=== PATIENT | male | born 1955 | race Caucasian/White ===

== ENCOUNTER 2019-05-30 08:54 | Outpatient (CLI) | payer MEDICARE, OTHER ==
[2019-05-30 09:42] LABS: #Eosinphils 0.2 thou/uL (0.0-0.7); #Lymphocytes 1.1 thou/uL (1.20-3.40); #Monocytes 0.6 thou/uL (0.11-0.59); #Neutrophils 3.9 thou/uL (1.40-6.50); %Basophils 0.2 % (0.0-1.0); %Monocytes 9.8 % (0.0-10.0); %Neutrophils 66.9 % (42.0-75.0); Hemoglobin 13.7 g/dL (14.0-18.0); Mean Corpuscular Hemoglobin 28.2 pg (27.0-31.0); Mean Corpuscular Volume 85.5 fL (78.0-98.0); Mean Platelet Volume 8.2 fL (7.4-10.4); Platelet Count 204 thou/uL (130-400); Red Blood Cell (RBC) Count 4.85 mill/uL (4.70-6.10); White Blood Cell (WBC) Count 5.8 thou/uL (4.8-10.8)
[2019-05-30 09:53] LABS: PTT 26.3 SEC (22.9-36.1); Prothrombin Time 13.5 SEC (12.0-14.7)
[2019-05-30 10:12] LABS: ALT (SGPT) 25 U/L (8-55); AST (SGOT) 26 U/L (5-34); Albumin 4.7 g/dL (3.4-4.8); Alkaline Phosphatase 64 U/L (40-110); Anion Gap 14 mmol/L (10-20); BUN (Urea Nitrogen) 12 mg/dL (8.4-25.7); Bilirubin, Total 1.1 mg/dL (0.2-1.2); Calc. Creatinine Clearance 0 mL/min (70-130); Calcium 9.4 mg/dL (7.8-10.44); Carbon Dioxide 24 mmol/L (23-31); Chloride 104 mmol/L (98-107); Estimated GFR-MDRD 88; Globulin 2.6 g/dL (2.4-3.5); Glucose 117 mg/dL (80-115); Potassium 4.5 mmol/L (3.5-5.1); Protein, Total 7.3 g/dL (5.8-8.1); Sodium 137 mmol/L (136-145)
== END 2019-05-30 08:55 | disposition home or self-care (01) ==
LOC: LABBT 08:54
PROVIDERS: ATTEND Internal Medicine Cardiovascular Disease
DX: Z01.812 Encounter for preprocedural laboratory examination (principal); R94.39 Abnormal result of other cardiovascular function study
CPT/HCPCS: 80053; 85025; 85610; 85730

== ENCOUNTER 2019-06-03 05:48 | Observation (INO) | payer MEDICARE, OTHER ==
[2019-05-30 09:24] VITALS: BMI 31.1
[2019-06-03] MEDS ORDERED: Diazepam 5 MG TAB ONE (06:37)
[2019-06-03] MEDS ORDERED: Heparin (Artline) 1,000 ML ONE (08:36)
[2019-06-03] MEDS ORDERED: Fentanyl 100 MCG/2 ML VIAL ONE ×2 (09:03→10:15)
[2019-06-03] MEDS ORDERED: Midazolam HCl 2 mg/2 ml Vial ONE (09:03)
[2019-06-03] MEDS ORDERED: Heparin 10,000 UNITS/1 ML VIAL ONE ×2 (09:41→09:53)
[2019-06-03] MEDS ORDERED: Nitroglycerin 100MG/250ML BOT 250 ML ONE (09:48)
[2019-06-03] MEDS ORDERED: Iopamidol 370 76% 100 ML VIAL ONE (09:48)
[2019-06-03] MEDS ORDERED: Iopamidol 370 76% 50 ML VIAL FS ONE (09:48)
[2019-06-03] MEDS ORDERED: Heparin (Artline) 500 ML ONE (10:48)
[2019-06-03] MEDS ORDERED: Sodium Chloride 0.9% 1,000 ML IV SCH (12:01)
[2019-06-03] MEDS ORDERED: Acetaminophen/Codeine 30-300mg Tablet PO PRN ×2 (12:01)
[2019-06-03] MEDS ORDERED: Nitroglycerin 0.4 MG TAB (25 Tab Bottle) SL PRN (12:01)
[2019-06-03] MEDS ORDERED: Fentanyl 100 MCG/2 ML VIAL SLOW IVP PRN (12:03)
[2019-06-03 14:10] LABS: Troponin I Less than 0.010 ng/mL (< 0.028)
--- NOTE | 2019-06-03 17:01 | CON ---
DATE OF CONSULTATION: HISTORY OF PRESENT ILLNESS: This is a pleasant 63-year-old gentleman with a history of a cardiac murmur for about 6 years. In 2012, he presented with an acute inferior [place] and underwent stenting of his distal right coronary artery by Dr. Levine. Within the year, he re-presented with an upper GI bleed and was found to have a marginal ulcer related to a previous gastric bypass with a Lilibeth-en-Y limb. Subsequently, he has had a followup endoscopy with healing of this lesion. Due to increasing dyspnea with exertion without chest pain, the patient underwent a cardiac cath today, showing subtotal occlusion prior to the stent with a small distal vessels. Attempts to pass a balloon through the stenosis were not successful. A cardiac echo done in Dr. Levine's office a few weeks ago showed a peak velocity of 3.5 m/sec with a peak gradient of 49 and a mean gradient of 33. Valve area appeared to be about 1.1 to 1.2 and the anulus diameter appeared to be about 2.3 cm. He is now being referred for aortic valve replacement, possibly coronary artery bypass grafting, although the right coronary artery made this probably too small to bypass and its branch vessels. PAST MEDICAL HISTORY: Includes: 1. Hypertension. 2. Dyslipidemia. 3. History of bladder cancer. 4. Chronic anemia, which may be related to his previous gastric bypass, which was done in [place] many years ago. PAST SURGICAL HISTORY: Includes: 1. Gastric bypass. 2. Bladder cystoscopy by Dr. Jasmine, with most recent one being negative. 3. He has had a previous coronary stent. SOCIAL HISTORY: The patient is a former smoker. 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 He drinks about a 6-pack a day and drinks a little wine every evening. ALLERGIES: HE REPORTS ALLERGIES TO ERYTHROMYCIN. REVIEW OF SYSTEMS: He has nocturia x2 and does admit to history of prostatic hypertrophy, but was told nothing needed to be done at this time. The patient denies any claudication. PHYSICAL EXAMINATION: GENERAL: On examination, he is an alert and cooperative gentleman at about 215 to 220 pounds, recorded height of 5 feet 8 inches. NECK: No carotid bruits. LUNGS: Clear to auscultation. CARDIAC: High-pitched systolic murmur across the precordium, lattice to the right upper sternal border. ABDOMEN: Obese and nontender. EXTREMITIES: He has no peripheral edema and he has easily palpable pedal pulses in both feet. ASSESSMENT AND PLAN: I believe that the right coronary system may be too small to graft, but this can be assessed at surgery. The patient has increasing dyspnea recently, which is felt to be related to his aortic valve stenosis and I have gone over aortic valve replacement with a bioprosthetic valve, possible coronary artery bypass grafting. He understands and wishes to proceed, although would prefer to wait until after the holidays, at which time he will contact the office. Job ID: [id number]
[2019-06-03 20:40] LABS: Troponin I 0.097 ng/mL (< 0.028)
[2019-06-03] MEDS ORDERED: Acetaminophen 500 MG TAB PO PRN (22:52)
[2019-06-03] MEDS ORDERED: predniSONE 20 MG TAB PO SCH (23:00)
[2019-06-03] MEDS ORDERED: diphenhydrAMINE 50 MG/ML VIAL IVP SCH (23:00)
[2019-06-04] MEDS ORDERED: Iron, Sodium Ferric Gluconate 250 MG in Sodium Chloride 0.9% 100 ML IVPB SCH (07:45)
[2019-06-04] MEDS: Isosorbide Mononitrate (ER) 30 MG TAB PO SCH ×2 (08:43→08:52)
[2019-06-04] MEDS ORDERED: COENZYME Q10 10 MG PO SCH (09:00)
[2019-06-04] MEDS ORDERED: Lisinopril 20 MG TAB PO SCH (09:00)
[2019-06-04] MEDS ORDERED: Ferrous Sulfate 325 MG TAB PO SCH (09:00)
[2019-06-04] MEDS ORDERED: Multivit, Therapeutic 1 TAB PO SCH (09:00)
[2019-06-04] MEDS ORDERED: Amlodipine 5 MG TAB PO SCH (09:00)
[2019-06-04] MEDS ORDERED: Rosuvastatin 10 MG TAB PO SCH (09:00)
[2019-06-04] MEDS ORDERED: Aspirin 81 mg Enteric Coated Tablet PO SCH (09:00)
[2019-06-04 12:43] VITALS: BP 150/75; TEMP 97.7
--- NOTE | 2019-06-04 16:02 | CCL ---
DATE OF PROCEDURE: 06/03/19 PROCEDURE: Coronary angiogram, attempted PCI of the right coronary artery. The patient is brought to the Cardiac Catheterization Lab in the fasting state. He was sedated, prepp ed and draped in the usual fashion. The right groin was anesthetized with 1% Xylocaine. Under ultraso und guidance, a 5 Argentine sheath was placed without difficulty. Following that, coronary angiography was done with Verito left FL4.5 diagnostic catheter and a JR4 c atheter for the right coronary. A brief attempt was made to cross the aortic valve. It was known to b e moderately to severely stenotic. The right coronary was inspected. A segment of approximately 30% plaque in the mid right coronary. Th ere was a 95% eccentric lesion in the right coronary artery proximal to the previously placed stent i 2012. The left main had no obstructive stenosis. LAD had some distal disease but no obstructive yassine nosis. Circumflex some distal disease but no obstructive stenosis. Therefore an attempt was made to angioplasty the right coronary artery. A 6 Argentine sheath was exchanged. Heparin was given and good b ackup was obtained with the FR4 guide. The lesion was crossed with a 0.014 wire. It looked like it wa s very tortuous in that segment and eccentric. Then we went back with a 2.5 mm noncompliant balloon. This was unable to cross the lesion. Therefore that was withdrawn and a 2.0 compliant balloon was use d but again that would not cross the lesion. The guide was becoming somewhat soft. Therefore, it look ed like the only possibility of crossing would be to get a guide better backup. The wire and catheter were removed. A 6 Argentine AL1 catheter was then used which gave very good back up. Tried with an inte rmediate wire that would not cross the lesion. Therefore went back with the hyper floppy. Ultimately that did cross the lesion but again even with good backup could not get a 2 mm balloon to cross the s tenosis. The patient had intermittent flow in the right coronary artery but no chest pain. Had known collaterals from the left. Additional angiogram was taken of the left system showing some collaterals from the left to the right . CONCLUSION: 1. Single vessel coronary disease. 2. Moderate to severe stenosis with normal left ventricular ejection fraction. 3. Disease in the right coronary artery which was unable to be successfully stented. Does have c ollaterals from the left. At some point, the patient will need aortic valve replacement. We will disc uss with the surgeon. Potentially the right coronary could be bypassed distal to the previously stent .
--- NOTE | 2019-06-04 20:35 | DIS ---
DATE OF ADMISSION: 06/03/2019 DATE OF DISCHARGE: 06/04/2019 FINAL DIAGNOSES: 1. Coronary artery disease, single vessel. 2. Aortic stenosis, moderate. 3. Allergic reaction of unclear etiology. The only new medicines were codeine which he received one dose of Tylenol No.3 and also received iodine contrast earlier in the day. 4. Iron deficiency anemia, improving. 5. Hypertension. 6. Hypercholesterolemia. HOSPITAL COURSE: Please see admission note for full details. Briefly, this is a gentleman who has had some exertional shortness of breath. Stress test revealed a fixed inferior defect with asa-infarction ischemia. Cardiac catheterization revealed a stent placed previously in the right coronary artery is patent, but there was a 90% lesion proximal to that, a centimeter more proximal to the stent. Multiple efforts were made to get a stent in this area. There was calcium and tortuosity in that segment and the balloon would not cross. There were some collaterals from the left. Multiple attempts were made to cross this with a balloon, even not successful. Therefore, ultimately abandoned that procedure. The patient did have collateral flow from the left. Even when there was transient occlusion of the right coronary during the procedure, the patient did not have any chest pain or EKG changes. I have asked Dr. Solitario to see the patient, initially we were considering valve replacement and surgery, but however, looks like the right coronary may well not be bypassable. The posterior descending artery is a very small vessel, not likely to be a candidate for successful grafting in that area. Therefore, the only reason to operative would be the valve, but the valve looks like only moderate aortic stenosis. I reviewed the echo findings with Dr. Montenegro, he also feels like it is most moderate. The valve area was calculated 1.2 cm2. The patient also prefers conservative medical therapy. Continue aspirin. Continue iron, still iron deficient. Increase amlodipine to 10 mg a day. Initially talked about nitrates, but he does not wish to pursue that. Crestor 10 mg a day. Follow up in the office in about a month. Discussed the importance of daily exercise, walks slowly the first 5-8 minutes to improve collateral flow. Also, we will call and nitroglycerin in case he has pain at rest and increase amlodipine to 10 mg a day. Precaution, we may wish to give him some prednisone prior to any further catheterization in case that was an iodine allergy, although it is really difficult to tell at this point whether it could have been the codeine causing that problem. The patient will see us in a month. Job ID: [id number]
[2019-06-05] MEDS ORDERED: Amlodipine 5 MG TAB PO SCH (09:00)
== END 2019-06-04 14:01 | disposition home or self-care (01) ==
LOC: CCL 05:48 → 2SW 11:33
PROVIDERS: ADMIT Internal Medicine Cardiovascular Disease; ATTEND Internal Medicine Cardiovascular Disease
PROC: 4A023N7 Measurement of Cardiac Sampling and Pressure, Left Heart, Percutaneous Approach (ICD-10-PCS; principal; 2019-06-03)
PROC: B2111ZZ Fluoroscopy of Multiple Coronary Arteries using Low Osmolar Contrast (ICD-10-PCS; 2019-06-03)
DX: I25.10 Atherosclerotic heart disease of native coronary artery without angina pectoris (principal); I35.0 Nonrheumatic aortic (valve) stenosis; E78.00 Pure hypercholesterolemia, unspecified; I10 Essential (primary) hypertension; E11.9 Type 2 diabetes mellitus without complications; D50.9 Iron deficiency anemia, unspecified; Z87.891 Personal history of nicotine dependence; Z79.82 Long term (current) use of aspirin; Z79.899 Other long term (current) drug therapy; Z88.1 Allergy status to other antibiotic agents; Z88.5 Allergy status to narcotic agent; Z90.49 Acquired absence of other specified parts of digestive tract; Z95.5 Presence of coronary angioplasty implant and graft; Z98.84 Bariatric surgery status
CPT/HCPCS: 76942; 82728; 84484 ×2; 85347 ×3; 93005 ×2; 93458; 96374; 96375; C1769 ×2; C1887; G0378 ×2; 36415; 99152; 99153; J1200; J1644; J2250; J2916; J3010; J3490; J7512; Q9967

== ENCOUNTER 2023-12-24 08:05 | Outpatient (CLI) | payer MEDICARE, OTHER | END 2023-12-24 08:06 | disposition home or self-care (01) | LOC: BICCT 08:05 | PROVIDERS: ATTEND Internal Medicine Gastroenterology | DX: R10.9 Unspecified abdominal pain (principal); K63.5 Polyp of colon; R19.4 Change in bowel habit; K76.0 Fatty (change of) liver, not elsewhere classified; K40.90 Unilateral inguinal hernia, without obstruction or gangrene, not specified as recurrent | CPT/HCPCS: 74177; 82565 ==